=== PATIENT | female | born 1975 | race Native Hawaiian/Other Pacific Islander ===

== ENCOUNTER 2018-05-09 06:29 | Day surgery (SDC) | payer OTHER ==
[2018-05-09] MEDS ORDERED: EPINEPHrine 1:1000 Nasal Sol(30mL) ONE (06:48)
[2018-05-09] MEDS ORDERED: ceFAZolin IV 1 gm in Dextrose 1 GM/50 ML BAG IVPB ONE (06:48)
[2018-05-09] MEDS ORDERED: Lidocaine/Epinephrine 1% 1:100000 10 ML IJ ONE (06:49)
[2018-05-09] MEDS ORDERED: Acetaminophen-Codeine 300/30 mg Tab PO PRN (08:45)
[2018-05-09] MEDS ORDERED: Dextrose 5%/0.45% NS 1,000 ML IV SCH (08:45)
[2018-05-09] MEDS ORDERED: Midazolam 2 MG/2 ML VIAL ONE (08:53)
[2018-05-09] MEDS ORDERED: Propofol 10 mg/ml Inj (20 ML) ONE (08:53)
[2018-05-09] MEDS ORDERED: Neostigmine Methylsulfate 3mg/3ml Syringe IV ONE (09:54)
[2018-05-09 10:21] VITALS: O2SAT 100
[2018-05-09 11:28] VITALS: BP 124/75; PULSE 66; RESP 18; TEMP 98
--- NOTE | 2018-05-09 18:02 | OP ---
PROCEDURE DATE: 05/09/2018 PREOPERATIVE DIAGNOSES: Deviated septum, large turbinates. POSTOPERATIVE DIAGNOSES: Deviated septum, large turbinates. PROCEDURES: Septoplasty, bilateral inferior turbinate reduction. DESCRIPTION OF PROCEDURE: The patient was brought into the room, placed in supine position. Anesthesia was initiated through an ET tube. The patient was draped in usual manner. Adrenaline-soaked pledgets were inserted into nasal cavity, it remained there for at least five minutes and removed. The septum was injected on both sides with lidocaine with epinephrine. A Tivoli incision was made on the left and mucoperichondrial flap was raised. Next, a vertical incision was made in the cartilage leaving a 1.5 cm anterior and superior strut and mucoperichondrial flap was raised on the other side. Deviated portion of the cartilage and bone were removed using forceps and chisel. A quilting suture was used to suture the two flaps together and close the [place] incision. A 0-degree scope was inserted into the nasal cavity. The inferior turbinates were noted to be enlarged and reduced in size, going from the inferior to superior, anterior posterior direction on both sides, first on the left, then on the right. Bleeding was controlled using suction cautery. Splints were placed. The patient was taken off anesthesia and taken to recovery room in stable manner. Dylan King MD
== END 2018-05-09 12:47 | disposition home or self-care (01) ==
LOC: C.SDS 06:29
PROVIDERS: ATTEND Otolaryngology
DX: J34.2 Deviated nasal septum (principal); J34.3 Hypertrophy of nasal turbinates
CPT/HCPCS: 30520; 30802; 88304; J0690; J2250; J2704; J2710; J3010; J7030; J7040

== ENCOUNTER 2018-11-21 08:55 | Day surgery (SDC) | payer OTHER ==
[2018-11-20 10:22] VITALS: BMI 26.6
[2018-11-21] MEDS ORDERED: Lactated Ringer's 500 ML IV ONE ×2 (10:01)
[2018-11-21] MEDS ORDERED: Propofol 10 mg/ml Inj (20 ML) ONE (10:04)
[2018-11-21] MEDS ORDERED: Midazolam 2 MG/2 ML VIAL ONE (10:04)
--- NOTE | 2018-11-21 10:08 | CP.SDSHP ---
Same Day Surgery H & P - History Proposed Procedure: EGD Pre-Op Diagnosis: SEE NOTES - Previous Medical/Surgical History Pain: 4.Moderate Pain - Allergies Allergies: Allergies No Known Allergies Allergy (Verified 05/03/18 14:10) - Physical Exam General Appearance: N Vital Signs: Vital Signs 11/21/18 09:34 Pulse Rate 75 Mental Status: Alert & Oriented x3 Neuro: WNL Heart: WNL Lungs: WNL GI: Other - {Optional Preform as Required} Breast: WNL Abdomen: Other Rectal: Other Integument: WNL ENT: WNL - Impression Pt. Evaluated Today:Candidate for Anesthesia & Procedure: Yes - Date & Time Time: 10:08 Short Stay Discharge - Short Stay Discharge Admitting Diagnosis/Reason for Visit: DYSPEPSIA Disposition: HOME/ ROUTINE
[2018-11-21 10:13] VITALS: O2SAT 100
[2018-11-21] MEDS ORDERED: Lidocaine Hydrochloride 5 ML INJ ONE (10:33)
[2018-11-21 10:40] VITALS: TEMP 98
[2018-11-21] MEDS ORDERED: Belladonna-Phenobarbital PO ONE (11:00)
[2018-11-21] MEDS ORDERED: Pantoprazole 40 mg EC Tab PO ONE (11:00)
[2018-11-21 11:10] VITALS: RESP 20
[2018-11-21 13:04] VITALS: BP 101/60; PULSE 69
== END 2018-11-21 12:15 | disposition home or self-care (01) ==
LOC: C.ENDO 08:55
PROVIDERS: ATTEND Specialist
DX: K30 Functional dyspepsia (principal); K20.9 Esophagitis, unspecified; K44.9 Diaphragmatic hernia without obstruction or gangrene; K31.9 Disease of stomach and duodenum, unspecified
CPT/HCPCS: 43239; 84703; 88305; J2250; J2704; J3010; J7120